=== PATIENT | female | born 1995 | race Caucasian/White ===

== ENCOUNTER 2023-04-02 04:24 | Emergency (ER) | payer MEDICAID ==
[~2023-04-02] VITALS: Ht 152.4 cm; Wt 64.0 kg
[2023-04-02 05:59] LABS: BASOPHILS % 0.2 % (0.0-2.0); EOSINOPHILS % 0.4 % (0.0-5.0); HEMATOCRIT. 38.9 % (36.0-48.0); HEMOGLOBIN. 13.4 g/dL (12.0-16.0); LYMPHOCYTES % 20.8 % (20.0-50.0); MEAN CORPUSCULAR HEMOGLOBIN 29.9 pg (28.0-32.0); MEAN CORPUSCULAR VOLUME 86.9 fL (81.0-99.0); MEAN PLATELET VOLUME 8.5 fl (7.4-10.4); NEUTROPHILS % 68.6 % (40.0-76.0); PLATELET 217 x1000/uL (130-400); RED BLOOD CELL COUNT 4.48 mill/uL (4.2-5.4)
[2023-04-02 06:10] LABS: CHLORIDE 103 mEq/L (98-107)
[2023-04-02 06:17] LABS: HCG SCREEN NEGATIVE
[2023-04-02] MEDS ORDERED: TOPUD PO (06:57)
[2023-04-02 07:45] VITALS: BP 110/77
== END 2023-04-02 08:24 | disposition home or self-care (01) ==
LOC: ER 04:24
DX: R07.89 Other chest pain (principal); R11.0 Nausea; E78.00 Pure hypercholesterolemia, unspecified
CPT/HCPCS: 36415; 71045; 80053; 81025; 83880; 84484; 84703; 85025; 85379; 93005; 99285; Z7610